=== PATIENT | female | born 1945 | race Caucasian/White ===

== ENCOUNTER 2021-01-01 10:47 | Emergency (ER) | payer SELFPAY ==
[~2021-01-01] VITALS: Ht 160 cm; Wt 74.3 kg
[2021-01-01 10:53] VITALS: BP 135/79
== END 2021-01-01 12:44 | disposition left against medical advice (07) ==
LOC: ED 11:17
DX: M25.551 Pain in right hip (principal); M25.552 Pain in left hip
CPT/HCPCS: 73523; 99284

== ENCOUNTER 2021-01-03 11:45 | Emergency (ER) | payer OTHER ==
[~2021-01-03] VITALS: Ht 157.5 cm; Wt 74.0 kg
[2021-01-03 12:25] VITALS: BP 131/73
--- NOTE | 2021-01-03 14:10 | NUR ---
DC EDUCATION PROVIDED PT DEMONSTRATES UNDERSTANDING.
== END 2021-01-03 14:12 | disposition home or self-care (01) ==
LOC: ED 13:45
DX: M25.561 Pain in right knee (principal); M25.551 Pain in right hip; M25.552 Pain in left hip; G89.29 Other chronic pain
CPT/HCPCS: 99282